=== PATIENT | female | born 1950 | race Caucasian/White ===

== ENCOUNTER 2017-10-07 08:00 | Outpatient (CLI) | payer BC | END 2017-10-07 11:45 | disposition home or self-care (01) | LOC: D.MAMMO 08:00 | DX: Z12.31 Encounter for screening mammogram for malignant neoplasm of breast (principal) ==

== ENCOUNTER → 2018-06-10 14:36 | Outpatient (CLI) | payer BC ==
[2018-06-10 15:56] LABS: BASOPHILS 0.6 % (0-2); EOSINOPHILS 3.1 % (0-7); HEMATOCRIT 39.4 % (36.0-48.0); HEMOGLOBIN 13.2 g/dL (12-16); IMMATURE GRANULOCYTES 0.1 % (0-5); LYMPHOCYTES 24.6 % (15-50); MCH 27.3 pg (26.0-34.0); MCHC 33.5 g/dL (31.0-37.0); MCV 81.6 fL (80.0-100.0); MEAN PLATELET VOLUME 9.1 fL (7.4-10.4); MONOCYTES 4.7 % (2-11); NEUTROPHILS 66.9 % (40-80); PLATELET COUNT 227 10x3/uL (130-400); RBC 4.83 10x6/uL (4.00-5.40); RDW 14.4 % (11.5-14.5); WBC 6.8 10x3/uL (4.8-10.8)
[2018-06-10 17:13] LABS: ERYTHROCYTE SEDIMENTATION RATE 23 mm/hr (0-30)
[2018-06-11 07:33] LABS: RAPID PLASMA REAGIN Non Reactive (Non Reactive)
[2018-06-11 08:21] LABS: IMMUNOGLOBULIN G 1099 mg/dL (700-1600)
[2018-06-11 12:17] LABS: ANA REFLEX - DIRECT Negative (Negative)
[2018-06-12 05:15] LABS: ANGIOTENSIN CONVERTING ENZYME 50 U/L (14-82)
== END | disposition home or self-care (01) ==
LOC: D.LAB 14:36
DX: H20.9 Unspecified iridocyclitis (principal)

== ENCOUNTER → 2018-10-31 14:08 | Outpatient (CLI) | payer BC | END | disposition home or self-care (01) | LOC: D.MRI 14:08 | PROVIDERS: ATTEND Orthopaedic Surgery | DX: R22.31 Localized swelling, mass and lump, right upper limb (principal) ==

== ENCOUNTER → 2018-11-11 15:30 | Outpatient (CLI) | payer BC | END | disposition home or self-care (01) | LOC: D.MRI 15:30 | PROVIDERS: ATTEND Orthopaedic Surgery | DX: M93.1 Kienbock's disease of adults (principal) ==

== ENCOUNTER → 2018-12-17 12:22 | Outpatient (CLI) | payer BC | END | disposition home or self-care (01) | LOC: D.MRI 12:22 | PROVIDERS: ATTEND Clinical Nurse Specialist Family Health | DX: M46.96 Unspecified inflammatory spondylopathy, lumbar region (principal) ==

== ENCOUNTER → 2019-10-07 14:11 | Outpatient (CLI) | payer OTHER | END | disposition home or self-care (01) | LOC: D.HCCECHO 14:11 | PROVIDERS: ATTEND Internal Medicine Cardiovascular Disease | DX: I34.0 Nonrheumatic mitral (valve) insufficiency (principal) ==

== ENCOUNTER 2020-07-22 14:43 | Outpatient (CLI) | payer OTHER | END 2020-07-22 23:59 | disposition home or self-care (01) | LOC: D.MAMMO 14:43 | PROVIDERS: ATTEND Clinical Nurse Specialist Family Health | DX: Z12.31 Encounter for screening mammogram for malignant neoplasm of breast (principal) ==

== ENCOUNTER 2020-07-27 09:00 | Outpatient (CLI) | payer OTHER | END 2020-07-27 23:59 | disposition home or self-care (01) | LOC: D.MAMMO 09:00 | PROVIDERS: ATTEND Clinical Nurse Specialist Family Health | DX: R92.8 Other abnormal and inconclusive findings on diagnostic imaging of breast (principal) ==